=== PATIENT | female | born 1995 | race Caucasian/White ===

== ENCOUNTER 2018-03-20 01:06 | Emergency (ER) | payer OTHER ==
[~2018-03-20] VITALS: Ht 160 cm; Wt 99.8 kg
[2018-03-20 01:15] VITALS: BP 115/74
--- NOTE | 2018-03-20 01:24 | Emergency Room Report ---
History of Present Illness General Chief Complaint: Toothache Source: Patient Present Illness HPI Patient presents with toothache for 4 days. She had broken tooth for approximately 6 months. Is not bothering until recently. The pain is 8/10 and she has trouble sleeping. She hasn't taken any medication. The pain radiates to her ear. No fevers, chills. No swelling. Born with polyps near ear. Not . No other somatic complaints. Allergies: Coded Allergies: No Known Allergies (Unverified , 03/20/18) Patient History Social History: Reports: smoking Social History Narrative From [place], works [employer] Last Menstrual Period: Mar 10, 2018 Now: No Reviewed Nursing Documentation: PMH: Agreed; PSxH: Agreed Nursing Documentation-PMH Past Medical History: No History, Except For Review of Systems Constitutional: Reports: see HPI Eye: Denies: eye pain ENT: Reports: see HPI Respiratory: Denies: cough, shortness of breath Gastrointestinal: Reports: see HPI; Denies: abdominal pain Genitourinary: Reports: see HPI Skin: Reports: see HPI Neurological: Denies: headache Physical Exam Vital Signs Date Time Temp Pulse Resp B/P (MAP) Pulse Ox O2 Delivery O2 Flow Rate FiO2 03/20/18 01:08 97.7 70 17 117/77 97 Room Air 97.7 General Appearance: well appearing, no apparent distress Head: normocephalic, atraumatic Eyes: bilateral eye normal inspection, bilateral eye PERRL ENT: moist mucus membranes, other - fractured molar, tragus polyps Neck: full range of motion, supple Respiratory: lungs clear, normal breath sounds, no respiratory distress, speaking full sentences Cardiovascular #1: regular rate, rhythm Cardiovascular #2: 2+ radial (R) Gastrointestinal: normal inspection Musculoskeletal: digits/nails normal, gait/station normal, normal range of motion Neurologic: alert, normal gait, grossly normal Psychiatric: mood/affect normal Skin: no rash Medical Decision Making Diagnostic Impression: Primary Impression: Toothache ER Course Patient presents with toothache and broken tooth. Differential includes dental abscess, root pain amongst others. Antibiotics and analgesics are indicated. The patient will be treated with Motrin amoxicillin and viscous lidocaine topically. The patient is improved with treatment. Patient is stable for outpatient observation and treatment. The patient was advised to see her dentist as soon as she gets back to [place]. Last Vital Signs Date Time Temp Pulse Resp B/P (MAP) Pulse Ox O2 Delivery O2 Flow Rate FiO2 03/20/18 01:28 97.7 03/20/18 01:15 75 17 115/74 97 Room Air Status: improved Disposition: HOME, SELF-CARE Condition: Improved Scripts Amoxicillin* (AMOXIL*) 500 Mg Capsule 500 MG ORAL EVERY 8 HOURS, #20 CAP Prov: Adithay Tovar M.D. 03/20/18 Lidocaine HCl 2% Viscous (Lidocaine HCl 2% Viscous) 100 Ml Solution 1 APPLIC ORAL QID PRN for For Pain, #20 ML Prov: Adithya Tovar M.D. 03/20/18 Tramadol Hcl* (ULTRAM*) 50 Mg Tablet 50 MG ORAL Q6H PRN for For Pain, #6 TAB 0 Refills Prov: Adithya Tovar M.D. 03/20/18 Ibuprofen* (MOTRIN*) 600 Mg Tablet 600 MG ORAL Q6H PRN for For Pain, #16 TAB Prov: Adithya Tovar M.D. 03/20/18 Adithya Tovar M.D. Mar 20, 2018 01:24
[2018-03-20] MEDS ORDERED: Lidocaine 2% Visc 15ml soln ORAL ONE (01:30)
[2018-03-20] MEDS ORDERED: IBUPROFEN600 MG ORAL (02:17)
[2018-03-20] MEDS ORDERED: TRAMADOL HCL50 MG ORAL (02:17)
[2018-03-20] MEDS ORDERED: LIDOCAINE VISC100 ML ORAL (02:17)
[2018-03-20] MEDS ORDERED: AMOXICILLIN500 MG ORAL (02:18)
[2018-03-20 02:47] VITALS: BP 115/74
== END 2018-03-20 02:47 | disposition home or self-care (01) ==
LOC: EMR 01:34
DX: K08.89 Other specified disorders of teeth and supporting structures (principal)
CPT/HCPCS: 99283